=== PATIENT | female | born 1975 | race Caucasian/White ===

== ENCOUNTER → 2019-06-06 | Emergency (ER) | payer MEDICAID ==
[2019-06-06] MEDS: METHYLPREDNISOLONE 125 MG INJ IV (22:49)
[2019-06-06] MEDS: BENZONATATE 100 MG CAP PO (22:53)
[2019-06-06] MEDS: ALBUTEROL/IPRATROPIUM (NEB) 3 ML AMP HHN (22:55)
== END | disposition home or self-care (01) ==
LOC: FTE 21:10
DX: R05 Cough (principal); R06.2 Wheezing
CPT/HCPCS: 71045; 94664; 96374; 99284-25